=== PATIENT | male | born 1965 | race Caucasian/White ===

== ENCOUNTER 2020-12-08 12:26 | Emergency (ER) | payer MEDICAID ==
[~2020-12-08] VITALS: Ht 177.8 cm; Wt 78.4 kg
[2020-12-08 12:26] VITALS: BP 78/36
--- NOTE | 2020-12-08 12:36 | PHYS DOC ---
Past History Past Medical History: Other (ADHD, autism spectrum) Smoking: Cigarettes Alcohol Use: None Drug Use: Amphetamine, Methamphetamine Adult General HPI HPI Patient is a 55yo male presenting via EMS for cardiac arrest. Last known normal was day prior at 9pm. Patient found today ill-appearing slumped against wall of home trying to light a cigarette when he had a witnessed arrest. CPR was started by family and EMS was called at 1120. On arrival, patient still unresponsive and in V-fib arrest and so LMA was inserted and ACLS ensued. Patient reportedly received x3 separate defibs, x2 doses of amio, x4 doses of Epi, and 1mg Narcan with eventual ROSC obtained en route to our ER. Patient's total cardiac arrest estimated ~30-45 minutes. Patient arrived at our facility 50minutes after witnessed arrest for evaluation. EMS reports brother was at scene, states he and brother make and abuse methamphetamine and cigarettes, it is unknown if he has any other medical issues Sister later arrived, confirmed patient has ADHD and autism spectrum disorder, not on any home medications. He is patient's legal guardian, she did not known patient utilized meth. Review of Systems Review of Systems Unobtainable due to decreased mentation Physical Exam Physical Exam Constitutional: GCS 3, ill-appearing, malodorous and appears unkept HENT: Head: Normocephalic and atraumatic. Mouth/Throat: Oropharynx is clear and dry with LMA in adequate position No hematomas or lacerations or abrasions to face or scalp OP clear, no blood, no malocclusion, dentition intact Nares clear, no nasal septal hematoma TMs clear, no hemotympanum Midface stable Eyes: Conjunctivae normal. Pupils are equal, round, and minimally reactive to light. No corneal reflex Neck: C-spine midline nontender, no step-offs Cardiovascular: Normal rate, regular rhythm and normal heart sounds. Pulmonary/Chest: Resp failure, shallow breathing requiring bagging with development of spontaneous breaths ~5 per min Abdominal: Soft. Bowel sounds are normal. Pt exhibits no distension. There is no tenderness. Musculoskeletal: No bony tenderness to extremities, no deformities, full ROM extremities Chest wall stable with [place] CPR machine in place Pelvis stable and non-tender No vertebral TTP and spine without stepoffs Neurological: Unable to fully asses due to patient condition, not following commands, moves all extremities intermittently in jerking motion that appears non-purposeful. Downgoing toes bilaterally Skin: Skin is warm and dry. No abrasions, no lacerations Psychiatric: Unable to fully assess Nursing note and vitals reviewed. Current Patient Data Vital Signs Vital Signs Date Time Temp Pulse Resp B/P (MAP) Pulse Ox O2 Delivery O2 Flow Rate FiO2 12/08/20 12:26 98.2 60 16 78/36 (50) 100 Room Air Vital Signs Date Time Temp Pulse Resp B/P (MAP) Pulse Ox O2 Delivery O2 Flow Rate FiO2 12/08/20 13:45 Ventilator 12/08/20 12:26 98.2 60 16 78/36 (50) 100 Lab Results Laboratory Tests Test 12/08/20 12:20 12/08/20 12:32 12/08/20 12:40 12/08/20 15:10 White Blood Count 7.2 x10^3/uL Red Blood Count 4.73 x10^6/uL Hemoglobin 15.5 g/dL Hematocrit 46.7 % Mean Corpuscular Volume 99 fL Mean Corpuscular Hemoglobin 33 pg Mean Corpuscular Hemoglobin Concent 33 g/dL Red Cell Distribution Width 13.3 % Platelet Count 120 x10^3/uL Neutrophils (%) (Auto) 42 % Lymphocytes (%) (Auto) 54 % Monocytes (%) (Auto) 3 % Eosinophils (%) (Auto) 1 % Basophils (%) (Auto) 1 % Neutrophils # (Auto) 3.0 x10^3uL Lymphocytes # (Auto) 3.9 x10^3/uL Monocytes # (Auto) 0.2 x10^3/uL Eosinophils # (Auto) 0.0 x10^3/uL Basophils # (Auto) 0.0 x10^3/uL Segmented Neutrophils % 33 % Band Neutrophils % 11 % Lymphocytes % 42 % Atypical Lymphocytes % (Manual) 9 % Monocytes % 2 % Eosinophils % 1 % Myelocytes % 2 % Platelet Estimate Decreased Prothrombin Time 11.0 SEC Prothromb Time International Ratio 1.1 Activated Partial Thromboplast Time 30 SEC Sodium Level 143 mmol/L Potassium Level 3.6 mmol/L Chloride Level 103 mmol/L Carbon Dioxide Level 19 mmol/L Anion Gap 21 Blood Urea Nitrogen 11 mg/dL Creatinine 1.7 mg/dL Estimated GFR (Cockcroft-Gault) 42.4 BUN/Creatinine Ratio 6 Glucose Level 331 mg/dL Lactic Acid Level 10.1 mmol/L 2.4 mmol/L Calcium Level 7.8 mg/dL Total Bilirubin 0.5 mg/dL Aspartate Amino Transf (AST/SGOT) 476 U/L Alanine Aminotransferase (ALT/SGPT) 647 U/L Alkaline Phosphatase 89 U/L Creatine Kinase 294 U/L Troponin I Quantitative 0.451 ng/mL Total Protein 6.2 g/dL Albumin 3.2 g/dL Albumin/Globulin Ratio 1.1 Salicylates Level 3.1 mg/dL Salicylate Last Dose Date Unknown Salicylate Last Dose Time Unknown Acetaminophen Level < 2.0 mcg/mL Acetaminophen Last Dose Date Unknown Acetaminophen Last Dose Time Unknown Ethyl Alcohol Level < 10 mg/dL Blood Gas pH 7.28 Blood Gas PCO2 40 mmHg Blood Gas PO2 92 mmHg Blood Gas HCO3 19 mmol/L Arterial Bld O2 Saturation (Calc) 96 % FiO2 100 % Urine Collection Type U cath Urine Color Yellow Urine Clarity Cloudy Urine pH 6.0 Urine Specific [place] >=1.030 Urine Protein >100 mg/dl Urine Glucose (UA) 100 mg/dL Urine Ketones (Stick) Neg mg/dL Urine Blood Mod Urine Nitrite Neg Urine Bilirubin Neg Urine Urobilinogen Dipstick 0.2 mg/dL Urine Leukocyte Esterase Neg Urine RBC 11-20 /HPF Urine WBC 5-10 /HPF Urine Squamous Epithelial Cells Mod /LPF Urine Amorphous Sediment Present /HPF Urine Bacteria 0 /HPF Urine Mucus Mod /LPF Urine Sperm Present /HPF Urine Opiates Screen Neg Urine Methadone Screen Neg Urine Barbiturates Neg Urine Phencyclidine Screen Neg Urine Amphetamine/Methamphetamine Pos Urine Benzodiazepines Screen Neg Urine Cocaine Screen Neg Urine Cannabinoids Screen Neg Urine Ethyl Alcohol Neg Test 12/08/20 16:49 Blood Gas pH 7.34 Blood Gas PCO2 34 mmHg Blood Gas PO2 144 mmHg Blood Gas HCO3 19 mmol/L Arterial Bld O2 Saturation (Calc) 99 % FiO2 50 % Current Medications Medications (Trade) Dose Ordered Sig/Maycol Route PRN Reason Start Time Stop Time Status Last Admin Dose Admin Sodium Chloride 1,000 ml @ 1,000 mls/hr 1X ONCE IV 12/08/20 12:45 12/08/20 14:06 DC 12/08/20 12:21 Naloxone HCl (Narcan) 0.4 mg 1X ONCE IV 12/08/20 12:45 12/08/20 14:06 DC 12/08/20 12:23 Naloxone HCl (Narcan) 0.4 mg 1X ONCE IV 12/08/20 12:45 12/08/20 14:06 DC 12/08/20 12:39 Iohexol (Omnipaque 300 Mg/ml) 75 ml 1X ONCE IV 12/08/20 13:00 12/08/20 14:06 DC Sodium Chloride 1,000 ml @ 1,000 mls/hr 1X ONCE IV 12/08/20 13:45 12/08/20 14:44 DC 12/08/20 12:28 Naloxone HCl (Narcan) 0.4 mg 1X ONCE IV 12/08/20 14:00 12/08/20 14:06 DC 12/08/20 14:03 Sodium Chloride 1,000 ml @ 1,000 mls/hr 1X ONCE IV 12/08/20 14:15 12/08/20 15:14 DC 12/08/20 14:03 Lorazepam (Ativan Inj) 0.5 mg 1X ONCE IVP 12/08/20 14:15 12/08/20 14:16 DC 12/08/20 14:29 Lorazepam (Ativan Inj) 2 mg STK-MED ONCE .ROUTE 12/08/20 14:16 12/08/20 14:16 DC Naloxone HCl 4 mg/ Sodium Chloride 254 ml @ 15.875 mls/ hr 1X ONCE IV 12/08/20 14:30 12/08/20 18:12 DC Midazolam HCl 50 ml @ As Directed STK-MED ONCE IV 12/08/20 14:48 12/08/20 14:49 DC Midazolam HCl 50 ml @ 1 mls/hr CONT PRN IV SEDATION 12/08/20 15:00 12/08/20 18:12 DC Sodium Chloride 1,000 ml @ 1,000 mls/hr Q1H IV 12/08/20 15:15 12/08/20 18:12 DC Fentanyl Citrate (Fentanyl 2ml Vial) 25 mcg PRN Q30MIN PRN IV PAIN 12/08/20 15:15 12/08/20 18:12 DC 12/08/20 18:07 Lorazepam (Ativan Inj) 1 mg PRN Q30MIN PRN IV SEDATION 12/08/20 15:15 12/08/20 18:12 DC Fentanyl Citrate 30 ml @ 2.5 mls/hr CONT PRN PRN IV PAIN 12/08/20 15:15 12/08/20 18:12 DC Propofol 100 ml @ 0 mls/hr CONT PRN IV SEDATION 12/08/20 15:15 12/08/20 18:12 DC Multi-Ingred Cream/Lotion/Oil/ Oint (Artificial Tears Eye Ointment) 1 ina PRN Q6HRS PRN OU 0.5 INCH FOR DRY EYE 12/08/20 15:15 12/08/20 18:12 DC Famotidine (Pepcid Vial) 20 mg BID IVP 12/08/20 21:00 12/08/20 18:12 DC 12/08/20 18:07 Aspirin (Aspirin Rectal Supp) 300 mg DAILY AR 12/09/20 09:00 12/08/20 18:12 DC Succinylcholine Chloride (Anectine) 200 mg STK-MED ONCE .ROUTE 12/08/20 15:33 12/08/20 15:33 DC Etomidate (Amidate) 40 mg STK-MED ONCE .ROUTE 12/08/20 13:00 12/08/20 17:07 DC Famotidine (Pepcid Vial) 20 mg STK-MED ONCE .ROUTE 12/08/20 18:04 12/08/20 18:04 DC Aspirin (Aspirin Rectal Supp) 300 mg STK-MED ONCE .ROUTE 12/08/20 18:04 12/08/20 18:04 DC EKG EKG EKG ordered and interpreted by myself at 1300 hrs. as sinus rhythm at 84 bpm, prolonged QTC at 493 otherwise unremarkable intervals, no axis deviation, no STEMI Radiology/Procedures Radiology/Procedures XR CHEST 1V INDICATION: CARDIAC ARREST WITH ROSC . COMPARISON STUDY: None. FINDINGS: Lungs: Normal lung volume. Bilateral perihilar opacities. Indistinct central vasculature. Pleura: No pleural effusion or pneumothorax. Heart and Mediastinum: The cardiomediastinal silhouette is normal. The great vessels of the thorax are normal. Bones and Soft Tissues: Chronic left clavicle and rib fractures. IMPRESSION: Bilateral perihilar opacities, probably interstitial edema. Electronically signed by: oJel Pat MD (12/08/2020 12:52 PM) [id number] ////////////////////////////// CT HEAD AND C-SPINE WO Date: 12/08/2020 12:47 PM Clinical Indication: CARDIAC ARREST Comparison: None. Technique: 5 mm axial tomographic images were obtained of the head without cont rast. These were viewed on brain and bone windows. CT imaging of the cervical spine was performed without contrast. Coronal and sagittal reformatted images were performed. One or more of the following dose reduction techniques were utilized: Automated exposure control (AEC), Adjustment of mA and/or kV according to patient size, Use of iterative reconstruction technique such as ASiR, CT scan done according to ALARA and image gently/image wisely HEAD FINDINGS: The brain parenchyma is normal in attenuation. No intra- or extra-axial mass or fluid collection. No acute hemorrhage. The ventricles are normal in size, shape, and morphology. The leblanc-white matter junction is normal. The basilar cisterns are patent. The visualized paranasal sinuses are normal. The visualized portions of the orbits and globes are normal. The mastoid air cells are clear. No aggressive osseous lesion or fracture. CERVICAL SPINE FINDINGS: The cervical spine is normally aligned. No acute fracture. No aggressive lytic or blastic osseous lesion. Mild multilevel degenerative disc height loss. No high-grade spinal canal stenosis or neural foraminal narrowing. The thyroid gland is normal. No cervical lymphadenopathy. The visualized aerodigestive tract is unremarkable. Lungs better evaluated on concurrent CT chest report. IMPRESSION: 1. No acute hemorrhage. No loss of leblanc-white differentiation. 2. No acute cervical spine fracture. Electronically signed by: Joel Pat MD (12/08/2020 1:35 PM) [id number] /////////////////// CT CHEST+ABD+PELVIS W 12/08/2020 12:49 PM INDICATION: Cardiac arrest COMPARISON: None available TECHNIQUE: Multiple axial CT images of the chest, abdomen and pelvis were obtained after the intravenous administration of nonionic contrast. Coronal and sagittal reformats are provided. FINDINGS: Thyroid gland is normal in appearance. Right hilar lymph node measures 2.7 x 2.2 cm. Heart size is within normal limits. No rupture of the myocardium. Thoracic aorta is normal in course and caliber. No aortic dissection. Central pulmonary arteries are patent. Patchy groundglass opacities are identified within the posterior aspects of the upper lobes and superior segments lower lobes. Consideration may be given for alveolar edema versus multifocal pneumonitis of infectious/inflammatory etiology. No pleural effusions, pulmonary vascular congestion or pneumothorax. Liver, spleen, adrenal glands, and pancreas are normal in appearance. Mild gallbladder wall thickening without adjacent inflammation. Mild periportal edema may be secondary to hepatic inflammation versus fluid overload. The abdominal aorta is normal in course and caliber. There are no pathologically enlarged lymph nodes in the abdomen and pelvis. There is no abdominal free fluid. There is no free intraperitoneal air. Small and large bowel are normal in caliber. There is no evidence for bowel obstruction. There are no pericolonic inflammatory changes. Appendix not definitively visualized. The kidneys enhance symmetrically. There is no suspicious renal mass. There is no hydronephrosis. There are no suspected calculi within the kidneys, ureters or urinary bladder. Gonsalez catheter identified within the urinary bladder which contains gas. Prostate and seminal vesicles are normal in appearance. Motion artifact limits evaluation of the sternum with areas of apparent cortical step-off suggestive of artifact rather than true fracture.. Nondiagnostic eval uation of the ribs. No acute compression deformity. Pelvis is intact. IMPRESSION: Ground glass changes within the upper lobes and superior segment lower lobes suggestive of pulmonary edema versus multifocal pneumonitis. Nondiagnostic evaluation of the ribs to assess for fracture given motion and stairstep artifact. No acute abnormality within the abdomen and pelvis. Periportal edema may reflect hepatitis versus fluid overload state. Urinary bladder decompressed by Gonsalez catheter. Electronically signed by: Yamilet Crowell MD (12/08/2020 1:45 PM) [facility] ////////////////// XR CHEST 1V 12/08/2020 3:47 PM INDICATION: Intubation COMPARISON: 12/08/2020 TECHNIQUE: Portable frontal view of the chest is provided. FINDINGS: The cardiomediastinal silhouette is within normal limits. Endotracheal tube terminates 5.1 cm above the level of the bruce. Mild bilateral perihilar inter stitial changes appears similar. There are no significant pleural effusions. There is no pulmonary vascular congestion. No pneumothorax. No suspicious osseous abnormality. IMPRESSION: Aeration of the lungs appears similar to the prior examination. Endotracheal tube is in satisfactory position. Electronically signed by: Yamilet Crowell MD (12/08/2020 4:20 PM) [facility] //////////////////// XR CHEST 1V Clinical Indication: Reason: S/P RT IJ CVL / Spl. Instructions: / History: Comparison: AP chest, earlier same day. Findings: The lung apices are excluded. The endotracheal tube tip is at the level the clavicles. There is right IJ central line, tip is near the superior atriocaval junction. Bilateral perihilar interstitial opacities are unchanged. The cardiomediastinal silhouette is normal. Lungs are clear. There is no pneumothorax. No pleural effusion is appreciated. No acute bone abnormality. IMPRESSION: 1. Right IJ central line tip near superior atriocaval junction. 2. No pneumothorax is seen. 3. Bilateral perihilar interstitial opacities are unchanged. Electronically signed by: Ariel Jama MD (12/08/2020 5:54 PM) [facility] Heart Score C/O Chest Pain: N/A HEART Score for Chest Pain: HEART Score for Chest Pain Response (Comments) Value History Slighlty/Non-Suspicious 0 ECG Nonspecific Repolarizatio 1 Age >45 - < 65 1 Risk Factors 1 or 2 Risk Factors 1 Troponin >3 x Normal Limit 2 Total 5 Risk Factors: Risk Factors: DM, Current or recent (<one month) smoker, HTN, HLP, family history of CAD, obesity. Risk Scores: Risk Factors: DM, Current or recent (<one month) smoker, HTN, HLP, family history of CAD, obesity. Course & Med Decision Making Course & Med Decision Making Airway with LMA in place, breathing shallow but supported with BVM, x2 IVs and vitals obtained concerning for RR<10 and hypotensive otherwise hemodynamically stable on arrival. x2 1L NS boluses started. 0.4mg narcan and subsequent 0.4mg narcan administered with what was thought as initial improvement/increase in resp rate and what appeared to be purposeful movements. LMA removed and OPA inserted with non-re breather applied Nonetheless, patient's improvement was transient and eventual decorticate posturing of RUE started concerning for hypoxic-ischemic encephalopathy I discussed findings with sister, patient's legal guardian who was distraught. She wants to know patient's brain function. I discussed poor prognosis given length of cardiac arrest and signs on physical exam, she wanted to talk to family before making any decisions regarding future care I contacted hospitalist at [facility], Dr. Henderson, and reviewed case, I case and need for transfer and agreed need for transfer and ICU admission. He agreed and recommended hypothermia protocol pending sister's decision Further discussion was had with sister, she reports wanting to "give him the best chance" and amenable to proceeding with intubation and hypothermia protocol. Patient intubated with subsequent right IJ CVL placed without complications. Cooling started Sister notified of successful completion and plan for hospital transfer, she was amenable. She still wasn't sure if she wanted to make patient DNR at this time, states she "doesn't want him to hurt anymore" but cites she's in shock and needs time to think more before changing code status All questions and concerns addressed prior to hospital transfer to [facility] for admission This patient required critical care. Due to the fact that the patient required a significant amount of one on one physician patient contact time, ordering and review of studies, arranging urgent treatment with development of a management plan, evaluation of patients response to treatment with frequent reassessments, and discussions with other providers this patient required critical care time in excess of 75 Critical care time was indicated due to the inherent instability and/or potential for instability in this patient. The critical care time that is allocated to this patient is above and beyond any time spent on any other billable procedures performed on this patient. Dragon Disclaimer Dragon Disclaimer This electronic medical record was generated, in whole or in part, using a voice recognition dictation system. Central Line Central Line : Central Line Lumen: triple Central Line Procedure: betadine prep, sterile drapes applied, sterile dressing applied Central Line Postion: internal jugular (R) Central Line Post Position: sutured, good blood return, position confirmed w/ CXR Progress CVC ACCESS PROCEDURE NOTE INDICATION: Emergency vascular access for fluid and drug administration. INFORMED CONSENT: Implied due to medical necessity, no family members able to be contacted initially for conset PROCEDURE: The patient was placed in Trendelenburg and the RT NECK area was prepped and draped in a sterile fashion. The area of interest was anesthetized with local anesthetic. With the introducer needle bevel oriented inferomedially, the RT NECK area was entered shallowly advancing with continuous aspiration on the syringe under ultrasound guidance until the RT INTERNAL JUGULAR vein was entered and there was free flow of venous blood. A Seldinger technique was then utilized to place a central venous catheter over a guidewire and the catheter was secured in place. A Portable Chest X-ray was ordered to confirm the catheters position. EBL: < 10 mL COMPLICATIONS: None Intubation Intubation : Intubation Method: orotracheal Tube Size (cm): 7.5 Medications: Succinylcholine Breath Sounds after Intubation: equal Intubation Complications: no complications Post Intubation Xray: Yes Progress The patient required endotracheal intubation. The patient was given Etomidate approx. 0.3 mg per kilogram Succ approx. 1 mg per kilogram Once the patient was adequately sedated and paralyzed, a Mac 3 laryngoscope was used to directly visualize the cords, patient had copious secretions requiring suction. Repeat look after suction with Glidoscope 3 blade used with adequate visualization of cords Using this direct visualization, a 7.5 endotracheal tube was then passed easily through the cords. This tube was inserted to 22 cm at the lip. There was excellent color change on the end-tidal CO2 monitor. The patient was easily and adequately ventilated. There were excellent breath sounds bilaterally with no breath sounds heard over the epigastrium. The tube was secured in the standard fashion. The patient tolerated this procedure well and there were no complications. Total length of procedure <30 seconds Post-intubation chest x-ray demonstrates excellent endotracheal tube placement. Departure Departure: Impression: Primary Impression: Cardiac arrest Additional Impressions: Methamphetamine abuse ADHD Autism spectrum Disposition: 02 [facility] ([facility]) Admitting Physician: Other (dr henderson) Condition: CRITICAL Problem Qualifiers CHEPE PAPPAS DO Dec 08, 2020 12:36
[2020-12-08] MEDS ORDERED: IV NORMAL SALINE 1,000ML 1,000 ML IV ONE ×3 (12:45→14:15)
[2020-12-08] MEDS ORDERED: NALOXONE 0.4 MG/ML VIAL. IV ONE ×3 (12:45→14:00)
[2020-12-08 12:50] LABS: BASO % 1 % (0-3); EOS % 1 % (0-3); HEMATOCRIT 46.7 % (39.0-53.0); HEMOGLOBIN 15.5 g/dL (13.0-17.5); LYMPH # 3.9 x10^3/uL (1.0-4.8); LYMPH % 54 % (24-48); MEAN CORPUSCULAR HEMOGLOBIN 33 pg (25-35); MEAN CORPUSCULAR HGB CONC 33 g/dL (31-37); MEAN CORPUSCULAR VOLUME 99 fL (79-100); MONO # 0.2 x10^3/uL (0.0-1.1); MONO % 3 % (0-9); NEUT % 42 % (31-73); PLATELET COUNT 120 x10^3/uL (140-400); RED BLOOD COUNT 4.73 x10^6/uL (4.30-5.70); RED CELL DISTRIBUTION WIDTH 13.3 % (11.5-14.5); WHITE BLOOD COUNT 7.2 x10^3/uL (4.0-11.0)
--- NOTE | 2020-12-08 12:55 | RAD ---
XR CHEST 1V INDICATION: CARDIAC ARREST WITH ROSC . COMPARISON STUDY: None. FINDINGS: Lungs: Normal lung volume. Bilateral perihilar opacities. Indistinct central vasculature. Pleura: No pleural effusion or pneumothorax. Heart and Mediastinum: The cardiomediastinal silhouette is normal. The great vessels of the thorax ar e normal. Bones and Soft Tissues: Chronic left clavicle and rib fractures. IMPRESSION: Bilateral perihilar opacities, probably interstitial edema. Electronically signed by: Joel Pat MD (12/08/2020 12:52 PM) [id number]
[2020-12-08 13:00] LABS: CALCIUM 7.8 mg/dL (8.5-10.1); CREATININE 1.7 mg/dL (0.7-1.3); GFR 42.4; POTASSIUM 3.6 mmol/L (3.5-5.1)
[2020-12-08] MEDS ORDERED: IOHEXOL 300 MG/ML 75 ML VIAL. IV ONE (13:00)
[2020-12-08] MEDS ORDERED: ETOMIDATE 40 MG/20 ML VIAL. ONE (13:00)
[2020-12-08 13:04] LABS: ACETAMIN < 2.0 mcg/mL (10-30); ETHANOL < 10 mg/dL (0-10); SALIC 3.1 mg/dL (2.8-20.0)
[2020-12-08 13:14] LABS: ALBUMIN 3.2 g/dL (3.4-5.0); ALBUMIN/GLOBULIN RATIO 1.1 (1.0-1.7); TOTAL BILIRUBIN 0.5 mg/dL (0.2-1.0); TOTAL PROTEIN 6.2 g/dL (6.4-8.2)
[2020-12-08 13:14] LABS: BARBITURATES NEG (NEG); BENZODIAZEPINES NEG (NEG); CANNABINOIDS NEG (NEG); COCAINE NEG (NEG); METHADONE NEG (NEG); OPIATES NEG (NEG); PHENCYCLIDINE NEG (NEG)
[2020-12-08 13:18] LABS: AMPHETAMINE/METHAMPHETAMINE POS (NEG)
[2020-12-08 13:21] LABS: AMORPHOUS SEDIMENT,UR PRESENT /HPF; BACTERIA,URINE 0 /HPF (0-FEW); BILIRUBIN,URINE NEG (NEG); CLARITY,URINE CLOUDY; COLOR,URINE YELLOW; GLUCOSE,URINE 100 mg/dL (NEG); NITRITE,URINE NEG (NEG); SPERM,URINE PRESENT /HPF; SQUAMOUS EPITHELIAL CELL,UR MOD /LPF; UROBILINOGEN,URINE 0.2 mg/dL (0.2 mg/dL)
--- NOTE | 2020-12-08 13:37 | RAD ---
CT HEAD AND C-SPINE WO Date: 12/08/2020 12:47 PM Clinical Indication: CARDIAC ARREST Comparison: None. Technique: 5 mm axial tomographic images were obtained of the head without contrast. These were view ed on brain and bone windows. CT imaging of the cervical spine was performed without contrast. Coron al and sagittal reformatted images were performed. One or more of the following dose reduction techni ques were utilized: Automated exposure control (AEC), Adjustment of mA and/or kV according to patient size, Use of iterative reconstruction technique such as ASiR, CT scan done according to ALARA and im age gently/image wisely HEAD FINDINGS: The brain parenchyma is normal in attenuation. No intra- or extra-axial mass or fluid collection. No acute hemorrhage. The ventricles are normal in size, shape, and morphology. The leblanc-white matter elaine ction is normal. The basilar cisterns are patent. The visualized paranasal sinuses are normal. The visualized portions of the orbits and globes are no rmal. The mastoid air cells are clear. No aggressive osseous lesion or fracture. CERVICAL SPINE FINDINGS: The cervical spine is normally aligned. No acute fracture. No aggressive lytic or blastic osseous les ion. Mild multilevel degenerative disc height loss. No high-grade spinal canal stenosis or neural foramina l narrowing. The thyroid gland is normal. No cervical lymphadenopathy. The visualized aerodigestive tract is unrem arkable. Lungs better evaluated on concurrent CT chest report. IMPRESSION: 1. No acute hemorrhage. No loss of leblanc-white differentiation. 2. No acute cervical spine fracture. Electronically signed by: Joel Pat MD (12/08/2020 1:35 PM) [id number]
--- NOTE | 2020-12-08 13:47 | RAD ---
PQRS Compliance Statement: One or more of the following individualized dose reduction techniques were utilized for this examinat ion: 1. Automated exposure control 2. Adjustment of the mA and/or kV according to patient size 3. Use of iterative reconstruction technique CT CHEST+ABD+PELVIS W 12/08/2020 12:49 PM INDICATION: Cardiac arrest COMPARISON: None available TECHNIQUE: Multiple axial CT images of the chest, abdomen and pelvis were obtained after the intraven ous administration of nonionic contrast. Coronal and sagittal reformats are provided. FINDINGS: Thyroid gland is normal in appearance. Right hilar lymph node measures 2.7 x 2.2 cm. Heart size is wi thin normal limits. No rupture of the myocardium. Thoracic aorta is normal in course and caliber. No aortic dissection. Central pulmonary arteries are patent. Patchy groundglass opacities are identified within the posterior aspects of the upper lobes and superior segments lower lobes. Consideration may be given for alveolar edema versus multifocal pneumonitis of infectious/inflammatory etiology. No pl eural effusions, pulmonary vascular congestion or pneumothorax. Liver, spleen, adrenal glands, and pancreas are normal in appearance. Mild gallbladder wall thickenin g without adjacent inflammation. Mild periportal edema may be secondary to hepatic inflammation versu s fluid overload. The abdominal aorta is normal in course and caliber. There are no pathologically en larged lymph nodes in the abdomen and pelvis. There is no abdominal free fluid. There is no free intr aperitoneal air. Small and large bowel are normal in caliber. There is no evidence for bowel obstruct ion. There are no pericolonic inflammatory changes. Appendix not definitively visualized. The kidneys enhance symmetrically. There is no suspicious renal mass. There is no hydronephrosis. There are no s uspected calculi within the kidneys, ureters or urinary bladder. Gonsalez catheter identified within the urinary bladder which contains gas. Prostate and seminal vesicles are normal in appearance. Motion artifact limits evaluation of the sternum with areas of apparent cortical step-off suggestive of artifact rather than true fracture.. Nondiagnostic evaluation of the ribs. No acute compression de formity. Pelvis is intact. IMPRESSION: Ground glass changes within the upper lobes and superior segment lower lobes suggestive of pulmonary edema versus multifocal pneumonitis. Nondiagnostic evaluation of the ribs to assess for fracture given motion and stairstep artifact. No acute abnormality within the abdomen and pelvis. Periportal edema may reflect hepatitis versus flu id overload state. Urinary bladder decompressed by Gonsalez catheter. Electronically signed by: Yamilet Crowell MD (12/08/2020 1:45 PM) [facility]
--- NOTE | 2020-12-08 13:51 | EKG ---
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
[2020-12-08 13:54] LABS: BGAS PH 7.28 (7.35-7.46)
[2020-12-08] MEDS ORDERED: NALOXONE 0.4 MG/ML VIAL. ONE (14:00)
[2020-12-08 14:14] LABS: % ATYL 9 % (0-0); % BANDS 11 % (0-9); % EOS 1 % (0-5); % LYMPHS 42 % (24-48); % MONOS 2 % (0-10); % MYELOS 2 % (0-0); % SEGS 33 % (35-66)
[2020-12-08 14:17] LABS: PLT ESTIMATE DECREASED (ADEQUATE)
[2020-12-08] MEDS ORDERED: NALOXONE IV ONE (14:30)
[2020-12-08] MEDS ORDERED: NORMAL SALINE IV ONE (14:30)
[2020-12-08] MEDS ORDERED: MIDAZOLAM 50mg/50ml NS KIT 50 ML IV ONE (14:48)
[2020-12-08] MEDS ORDERED: MIDAZOLAM 50mg/50ml NS KIT 50 ML IV PRN (15:00)
[2020-12-08] MEDS ORDERED: IV NORMAL SALINE 1,000ML 1,000 ML IV SCH (15:15)
[2020-12-08] MEDS ORDERED: PROPOFOL 100 ML IV PRN (15:15)
[2020-12-08] MEDS ORDERED: MINERAL OIL/PETROLATUM,WHITE OPHTH OINT 3.5GM TUBE. OU PRN (15:15)
[2020-12-08] MEDS ORDERED: SUCCINYLCHOLINE 200 MG/10 ML VIAL. ONE (15:33)
--- NOTE | 2020-12-08 16:23 | RAD ---
XR CHEST 1V 12/08/2020 3:47 PM INDICATION: Intubation COMPARISON: 12/08/2020 TECHNIQUE: Portable frontal view of the chest is provided. FINDINGS: The cardiomediastinal silhouette is within normal limits. Endotracheal tube terminates 5.1 cm above t he level of the bruce. Mild bilateral perihilar interstitial changes appears similar. There are no significant pleural effusions. There is no pulmonary vascular congestion. No pneumothora x. No suspicious osseous abnormality. IMPRESSION: Aeration of the lungs appears similar to the prior examination. Endotracheal tube is in satisfactory position. Electronically signed by: Yamilet Crowell MD (12/08/2020 4:20 PM) [facility]
[2020-12-08 17:14] LABS: BGAS PH 7.34 (7.35-7.46)
--- NOTE | 2020-12-08 17:56 | RAD ---
XR CHEST 1V Clinical Indication: Reason: S/P RT IJ CVL / Spl. Instructions: / History: Comparison: AP chest, earlier same day. Findings: The lung apices are excluded. The endotracheal tube tip is at the level the clavicles. There is right IJ central line, tip is near the superior atriocaval junction. Bilateral perihilar interstitial opac ities are unchanged. The cardiomediastinal silhouette is normal. Lungs are clear. There is no pneumothorax. No pleural ef fusion is appreciated. No acute bone abnormality. IMPRESSION: 1. Right IJ central line tip near superior atriocaval junction. 2. No pneumothorax is seen. 3. Bilateral perihilar interstitial opacities are unchanged. Electronically signed by: Ariel Jama MD (12/08/2020 5:54 PM) [facility]
[2020-12-08] MEDS ORDERED: ASPIRIN RECTAL 300 MG SUPP. ONE (18:04)
[2020-12-08] MEDS ORDERED: FAMOTIDINE 20 MG/2 ML VIAL ONE (18:04)
[2020-12-08] MEDS ORDERED: FAMOTIDINE 20 MG/2 ML VIAL IVP SCH (21:00)
[2020-12-09] MEDS ORDERED: ASPIRIN RECTAL 300 MG SUPP. PR SCH (09:00)
== END 2020-12-08 18:10 | disposition short-term general hospital (02) ==
LOC: ER 12:26
DX: I46.9 Cardiac arrest, cause unspecified (principal); F84.0 Autistic disorder; F15.10 Other stimulant abuse, uncomplicated; F90.9 Attention-deficit hyperactivity disorder, unspecified type; F12.10 Cannabis abuse, uncomplicated; F17.210 Nicotine dependence, cigarettes, uncomplicated
CPT/HCPCS: 31500; 36415; 36556; 36600; 70450; 71045; 71260; 72125; 74177; 80053; 80307; 80329; 81001; 82550; 82803; 83605; 84484; 85007; 85025; 85610; 85730; 87040; 87086; 92950; 93005; 94002; 96361; 96374; 96375; 99292; G0480; J2060; J2310; J3010; J3490; 99291-25; J7030